=== PATIENT | female | born 1970 | race Caucasian/White ===

== ENCOUNTER 2020-01-20 18:18 | Emergency (ER) | payer BC, SELFPAY ==
[2020-01-20 18:38] VITALS: BP 142/88; PULSE 105; RESP 16; TEMP 37; O2SAT 98; BMI 38.2
--- NOTE | 2020-01-20 18:40 | XR_ITS ---
PROCEDURE: XR FOOT LT MIN 3V Patient Age:49Y CLINICAL INDICATION: FALL left foot pain Swelling pain dorsal aspect of the foot most pronounced towards 4th and 5th metatarsal COMPARISON: No exams were available for comparison FINDINGS: Oblique acute nondisplaced fracture passing obliquely through the proximal metaphysis of the 5th metatarsal.. This subtle fractures seen on the oblique view, but difficult to appreciate on the other views The 4th metatarsal is intact. Other metatarsals intact. Tarsals intact normal relationships joint spaces fairly well maintained with only. Skin minor sclerosis about the talar-navicular articulation. The joint spaces at toes are well maintained. No erosions. Toes unremarkable. IMPRESSION: Nondisplaced fracture left 5th metatarsal This is subtle fracture seen passing obliquely through the proximal metaphysis fifth metatarsal (seen on the oblique view since Dictated by: Beka Patel MD 01/20/2020 19:25 Electronically signed by Beka Patel MD in [place] 01/20/2020 19:25
--- NOTE | 2020-01-20 18:54 | HMH.EDUTC ---
[facility] [place] Disposition Clinical Impression: Fracture of fifth metatarsal bone of left foot Qualifiers: Encounter type: initial encounter Fracture type: closed Fracture alignment: nondisplaced Qualified Code(s): S92.355A - Nondisplaced fracture of fifth metatarsal bone, left foot, initial encounter for closed fracture Disposition: Home, Self-Care Condition on Discharge: Good Instructions: DI for Foot Fracture, Foot Fracture, How To Perform RICE (Rest, Ice, Compress, Elevate), How to Use Crutches Additional Instructions: *No weight bearing *RICE, Rest the extremity, Ice 15-20 minutes 3-4 times daily, Compress- wear the dhaval wrap as discussed as much as possible to help reduce swelling and pain, Elevate the extremity when at rest *Dhaval wrap is for support and help control swelling, use it except in the shower. Be sure that is not to tight but not to loose either *Elevate when resting *Ibuprofen 600-800mg every 6-8 hours as needed for pain an inflammation. If need something more can take Tylenol in between doses of Ibuprofen to help Immediately follow up with your family doctor for new or worsening of symptoms, or no noticeable improvement over the next 3-[address] Villeda office on Wednesday and make appointment Return if needed Straight to ER if any life threatening symptoms Referrals: Nestor Stevenson [Primary Care Provider] - As needed Isha Willams DPM [Staff Physician] - Akanksha Harris APRN [Nurse Practitioner] - Time of Disposition: 19:42 Medical Decision Making - Rj Inquiry Pt receiving controlled substance: No Rj was queried for this patient: No Vital Signs: 01/20/20 18:38 Temperature 98.6 F Temperature Source Oral Pulse Rate [Right Brachial] 105 H Respiratory Rate 16 Blood Pressure [Right Arm] 142/88 H Blood Pressure Mean [Right Arm] 106 Blood Pressure Source [Right Arm] Automatic Cuff Blood Pressure Position [Right Arm] Sitting 02 Sat by Pulse Oximetry 98 Oxygen Delivery Method Room Air - Radiology Data #1 Image(s): Foot/Toes Image Reviewed: Yes I have reviewed radiologist's interpretation IMPRESSION: Nondisplaced fracture left 5th metatarsal This is subtle fracture seen passing obliquely through the proximal metaphysis fifth metatarsal (seen on the oblique view since [facility] HPI - General Stated complaint: AO 0725 1200 fell injured L foot Time Seen by Provider: 01/20/20 18:54 Mode of Arrival: Ambulatory Source of Information: Patient Limitations: No Limitations Description of Symptoms (Recalled from Triage Doc. by RN): fall, left foot is hurting, top of foot bruised HEENT Symptoms (Recalled from RN notes): No Resp Symptoms (Recalled from RN notes): No Skin Symptoms (Recalled from RN notes): No MS Symptoms (Recalled from RN notes): Yes Functional Status (Recalled from RN notes): none - History of Present Illness Provider Complaint: Patient state that she was up in the attic and as she was coming down from the attic she slipped and landed on her left foot States that ever since she has been having pain and swellign in the side of her left foot and feels like her 4th and 5th toes are swollen States that she fell about noon today and this evening it looked more bruised so she came in to get it checked Denies any other injury - Related Data Home Medications Medication Instructions Recorded Confirmed cholecalciferol (vitamin D3) 50 2,000 unit PO DAILY cap 09/01/17 01/20/20 mcg (2,000 unit) capsule citalopram 20 mg tablet 20 mg PO DAILY tab 09/01/17 01/20/20 estradiol 1 mg tablet 1 mg PO DAILY tab 09/01/17 01/20/20 levothyroxine 88 mcg capsule 88 mcg PO DAILY cap 09/01/17 01/20/20 hxjwwldpgzkn-Vk-lvqf-minerals 18 1 tab PO DAILY tab 09/01/17 01/20/20 mg-0.4 mg tablet topiramate 50 mg tablet 50 mg PO QHS tab 09/01/17 01/20/20 vitamin B complex 1 tab PO DAILY tab 09/01/17 01/20/20 Pantoprazole Sodium [Protonix 40mg 40 mg PO QAM 01/20/20 01/20/20 tablet] Allergies A
[2020-01-20 19:55] VITALS: BP 142/88; PULSE 105; RESP 16; TEMP 37
== END 2020-01-20 20:01 | disposition home or self-care (01) ==
PROVIDERS: Emergency Provider Nurse Practitioner; PCP Family Medicine
DX: S92.355A Nondisplaced fracture of fifth metatarsal bone, left foot, initial encounter for closed fracture (principal); W10.8XXA Fall (on) (from) other stairs and steps, initial encounter; Y92.019 Unspecified place in single-family (private) house as the place of occurrence of the external cause; K21.9 Gastro-esophageal reflux disease without esophagitis; E03.9 Hypothyroidism, unspecified; F41.9 Anxiety disorder, unspecified; G43.709 Chronic migraine without aura, not intractable, without status migrainosus; Z88.0 Allergy status to penicillin
CPT/HCPCS: 73630; 99201

== ENCOUNTER → 2020-02-19 14:47 | Outpatient (CLI) | payer BC, SELFPAY ==
--- NOTE | 2020-02-19 14:52 | XR_ITS ---
PROCEDURE: XR FOOT WT BEARING LT 3V CLINICAL INDICATION: fracture follow up. Follow-up fracture COMPARISON: CR XR FOOT LT MIN 3V from 01/20/2020 FINDINGS: Nondisplaced oblique fracture involves the proximal aspect of the 5th metatarsal. This fracture is nondisplaced. The fracture line is somewhat less apparent compared to the previous exam consistent with healing. No other significant anomalies are evident. The joint spaces are well-preserved. No significant degenerative/arthritic changes. No erosive changes evident. Other findings:None. IMPRESSION: Healing nondisplaced oblique fracture proximal aspect of the 5th metatarsal Dictated by: Clark Sher MD 02/19/2020 15:09 Clark Sher MD in [place] 02/19/2020 15:09
== END ==
PROVIDERS: PCP Family Medicine; Visit Provider Podiatrist
DX: T14.8XXA Other injury of unspecified body region, initial encounter (principal)
CPT/HCPCS: 73630

== ENCOUNTER → 2020-07-17 06:44 | Outpatient (CLI) | payer BC, SELFPAY ==
--- NOTE | 2020-07-17 06:45 | CA_ITS ---
APPROVED REPORT Exam: Exercise Treadmill Technologist: Beth Feliz Ht: 5 ft 6 in Wt: 253 lbs BSA: 2.21 m2 HR: 59 bpm BP: 129/82 mmHg Indications: Chest pain Medical History Medications: Levothyroxine,,,,, Vitamin D3,,,,, Citalopram,,,,, TopIRAMATE,,,,, Vitamin B Complex,,,,, Multivitamin,,,,, Suralfate,,,,, Stress Test Details Test: Scout HR Resting HR: 69 bpm Max Heart Rate (APMHR): 170 bpm Max HR Achieved: 130 bpm Target HR (85% APMHR): 144 bpm % of APMHR: 76 Recovery HR: 67 bpm BP Resting BP: 129.0/82.0 mmHg Max BP: 178.0/84.0 mmHg Recovery BP: 130.0/73.0 mmHg ECG Resting ECG: Sinus bradycardia, otherwise normal Clinical Exercise duration: 06:00 min Highest Stage Achieved: Exercise capacity: 7.0 METs Stress ECG Conclusion Patient exercised to exhaustion which was 6:00 on Scout Protocol. Test stopped due to shortness of air, fatigue. Symptoms: Mild grabbing chest discomfort with shortness of air. Arrhythmias/Ectopy: None ST-T Changes: Normal ST response to exercise. Conclusion: Normal GXT to heart rate achieved (76% of PM). Myoview images reported separately. Test Summary RECOVERY 01:00 0.0 0.0 105 . 178/ 84 . chest pressure REST . . . . . . . Standing REST 03:06 0.0 0.0 69 . 129/ 82 . . Stage 1 01:00 10.0 1.7 91 . . . . Stage 1 02:00 10.0 1.7 101 . . . . Stage 1 03:00 10.0 1.7 108 . 158/ 75 . . Stage 2 01:00 12.0 2.5 119 . . . . Stage 2 . . . . . . . Myoview Injected Stage 2 02:00 12.0 2.5 127 . . . . Stage 2 03:00 12.0 2.5 130 . . . Stop exercise at 06:00 RECOVERY . . . . . . . chest pressure RECOVERY 01:00 0.0 0.0 105 . 178/ 84 . . RECOVERY 02:00 0.0 0.0 76 . 178/ 84 . . RECOVERY 03:00 0.0 0.0 73 . 140/ 75 . . RECOVERY 04:00 0.0 0.0 70 . 140/ 75 . . RECOVERY 05:00 0.0 0.0 67 . 140/ 75 . . RECOVERY 05:20 0.0 0.0 68 . 130/ 73 . . Electronically signed by : Daryl Pena, 07/18/2020 16:29:04
--- NOTE | 2020-07-17 06:45 | CA_ITS ---
APPROVED REPORT EXAM: Comprehensive 2D, Doppler, and color-flow Echocardiogram Head Animal Keeper: Kaylah Ballard RVT Ht: 5 ft 6 in Wt: 253lbs BSA: 2.21 BP: 122/84 mmHg Indications: CP,ORTA,GERD TDS-BODY HABITUS 2D Dimensions LVOT 1.61 cm (M/F) 1.5-2.5 M-Mode Dimensions RVDd 2.36 cm (0.9-2.6) LA Diam 3.54 cm (1.9-4.0) LVDd 5.78 cm (3.5-5.7) Ao Diam 2.82 cm (2.0-3.7) LVDs 3.53 cm (3.5-5.7) IVSd 0.65 cm (0.6-1.1) PWd 0.76 cm (0.6-1.1) EF (Teich) 68.60% FS 38.90% EDV (Teich) 165.20 mL ESV (Teich) 51.90 mL LV Diastology E Decel Time 193.00 (160-240 msec) E/A Ratio 1.1 MED E' 9.00 (< 7 cm/sec) E'/MED E' Ratio 8.78 (>14) LAT E' 13.60 (<10 cm/sec) E/LAT E' Ratio 5.81 (>14) Mitral Valve MV E Max Juan. 79.00 (40-130 cm/s) MV A Velocity 69.00 (40-130 cm/s) E/A Ratio 1.14 MV Decel. Time 193.00 (160-240 ms) MV PHT 57.00 ms Pulmonary Valve PV Peak Velocity 73.00 (50-150 cm/s) Tricuspid Valve TR P. Velocity 162.00 cm/s Left Ventricle Left atrium is normal size, left ventricle is normal size, there is no concentric left ventricular hypertrophy, visually estimated ejection fraction 55% with no regional wall motion abnormality, diastolic parameters are within normal range. Right Ventricle Right atrium and right ventricle are normal size and contractility. Aortic Valve Aortic valve is grossly normal, there is no aortic stenosis or aortic insufficiency. Mitral Valve Mitral valve is grossly normal, there is trace mitral regurgitation. Tricuspid Valve Tricuspid valve is grossly normal, there is trace tricuspid regurgitation, tricuspid regurgitation jet velocity is inadequate for calculation of the left right ventricular systolic pressure. Pulmonic Valve Pulmonic valve is poorly visualized. Great Vessels Aortic root is normal size. Pericardium No significant pericardial effusion noted. Conclusion 1. Normal left ventricular size, preserved left ventricular systolic function, visually estimated ejection fraction 55% with no regional wall motion abnormality, diastolic parameters are within normal range. 2. Trace mitral and tricuspid regurgitation. 3. No significant pericardial effusion noted. Electronically signed by : Daryl Pena, 07/18/2020 15:20:52
--- NOTE | 2020-07-17 06:45 | NM_ITS ---
APPROVED REPORT Exam: Nuclear Stress Test Indication: Chest pain, SOB, High cholesterol, Family history Patient Location: Outpatient Stress Tech: Beth Feliz VA Tech:Candi Noel, ARRT, RT (R)(N) Ht: 5 ft 7 in Wt: 250 lbs Bra Size: 44DD HR: 59 bpm BP: 129/82 mmHg BSA: 2.22 m2 BMI: 39.1 History: Chest pain, SOB, High cholesterol, Family history Procedure: Patient exercised on Scout protocol 6:00 minutes and sec, resting heart rate 59 bpm, resting blood pressure 129/82 mmHg, with exercise maximum heart rate achived was 130 bpm which is 76 % of the maximum predicted heart rate and blood pressure was 178/84 mmHg. Test was stopped due to SOA and fatigue. Patient has Adequate exercise capacity, achieved 7.0 METs of workload on treadmill, the blood pressure response to exercise was Adequate. Electrocardiogram Resting electrocardiogram showed sinus rhythm, with exercise there is less than 1.[address] segment depression noted from the baseline EKG. The EKG portion of the exercise Myoview is nondiagnostic as patient did not achieve the target heart rate. Cardiac Stress and Resting SPECT Images: Cardiac Stress and Resting SPECT images were obtained using technetium 99m Myoview 32.1 mCi stress and 9.62 mCi at rest. Gated SPECT for analysis of segmental wall motion and calculation of the ejection fraction also done, prone images were also obtained. Cardiac stress and resting SPECT images show uniform myocardial activity without segmental perfusion abnormality, computer derived ejection fraction 57% with no regional wall motion abnormality, right ventricle is normal size and contractility. Conclusion: 1. The EKG portion of the exercise Myoview is nondiagnostic as patient did not achieve the target heart rate, patient has adequate exercise capacity achieved 7 mets of workload on treadmill, the blood pressure response to exercise was adequate. There was no exercise-induced chest discomfort. 2. No scintigraphic evidence of reversible ischemia seen at this level of exercise, computer derived ejection fraction is 57% with no regional wall motion abnormality, right ventricle is normal size and contractility. Electronically signed by : Daryl Pena, 07/18/2020 16:32:31
--- NOTE | 2020-07-17 08:08 | HMH.ITSHM ---
Current Home Medications as stated by this patient Akanksha Milian or vendor representatives. []VITAMIN B TOPIRAMATE SUCRALFATE MULTIVITAMIN LEVOTHYROXINE CITALOPRAM VITAMIN D3
[2020-07-17 10:23] LABS: Basophils # 0.1 K/mm3 (0-0.2); Basophils % 0.7 % (0.1-2.0); Eosinophils # 0.3 K/mm3 (0.0-0.4); Eosinophils % 4.1 % (0.1-12.0); Hematocrit 43.9 % (37.0-47.0); Hemoglobin 14.5 g/dL (12.2-16.2); Lymphocytes % 41.9 % (10-50); Mean Corpuscular Hemoglobin 29.3 pg (27.0-31.2); Mean Corpuscular Volume 88.8 fl (81-99); Monocytes # 0.5 K/mm3 (0.1-1.0); Monocytes % 6.9 % (1.7-9.3); Neutrophils # 3.3 K/mm3 (1.8-7.8); Neutrophils % 46.4 % (37.0-80.0); Platelet Count 236 K/mm3 (142-424); Red Blood Count 4.95 M/mm3 (4.20-5.40); Red Cell Distribution Width 14.5 % (11.5-17.5); White Blood Count 7.1 K/mm3 (4.8-10.8)
[2020-07-17 13:21] LABS: Chloride 103 mmol/L (98-107); Sodium 138 mmol/L (136-145)
[2020-07-17 13:22] LABS: Potassium 4.1 mmoL/L (3.5-5.1)
[2020-07-17 13:24] LABS: Alanine Aminotransferase 41 U/L (12-78); Albumin Level 4.1 g/dl (3.5-5.0); Alkaline Phosphatase 70 U/L (38-126); Anion Gap 10.1 mEq/L (5-15); Aspartate Amino Transferase 47 U/L (14-36); Bilirubin,Direct 0.1 mg/dl (0.0-0.4); Bilirubin,Indirect 0.3 mg/dL (0.0-0.9); Bilirubin,Total 0.4 mg/dl (0.2-1.3); Bilirubin,Unconjugated 0.3 mg/dL (0.0-1.1); Blood Urea Nitrogen 15 mg/dl (7-17); Carbon Dioxide 29 mmol/L (22.0-30.0); Cholesterol 267 mg/dl (140-200); Estimated Glomerular Filt Rate 66 ml/min (>60); GFR (African American) 80 ML/MIN (>60); Total Protein,Serum 6.7 g/dl (6.3-8.2); Triglycerides 205 mg/dl (30-150); VLDL Cholesterol 41 mg/dL (0-40)
[2020-07-17 13:25] LABS: Calcium 9.5 mg/dl (8.4-10.2); Chol/HDL Ratio 5.3 (1-3.5); Glucose 84 mg/dl (74-100); HDL Cholesterol 50 mg/dl (40-60)
[2020-07-17 13:43] LABS: Free T4 (Free Thyroxine) 1.34 ng/dl (0.78-2.19)
[2020-07-17 13:56] LABS: Thyroid Stimulating Hormone 1.81 uIU/mL (0.465-4.68)
== END ==
PROVIDERS: PCP Family Medicine; Visit Provider Urology
DX: R07.9 Chest pain, unspecified (principal); R06.00 Dyspnea, unspecified
CPT/HCPCS: 36415; 78452; 80048; 80061; 80076; 84439; 84443; 85025; 93017; 93306; A9502

== ENCOUNTER → 2020-07-17 09:19 | Outpatient (CLI) | payer BC, SELFPAY | PROVIDERS: Visit Provider Urology | DX: R07.9 Chest pain, unspecified (principal) | CPT/HCPCS: 36415; 80048; 80061; 80076; 84439; 84443; 85025 ==

== ENCOUNTER 2020-11-18 14:40 | Emergency (ER) | payer OTHER, SELFPAY ==
[2020-11-18 14:50] VITALS: BP 132/88; PULSE 94; RESP 19; TEMP 37; O2SAT 100; BMI 41.6
--- NOTE | 2020-11-18 15:20 | HMH.EDUTC ---
[facility] [place] Disposition Clinical Impression: Conjunctivitis Qualifiers: Conjunctivitis type: unspecified Laterality: right Qualified Code(s): H10.9 - Unspecified conjunctivitis Disposition: Home, Self-Care Condition on Discharge: Good Instructions: DI for Conjunctivitis, Conjunctivitis, Polymyxin B and Trimethoprim Ophthalmic Additional Instructions: Use drops as prescribed Wash hands well before and after application of eye drops Return if needed Follow up with Dr Higuera at [facility] or an Eye Doctor of your choice if no improvement or any worsening of symptoms Straight to ER if any life threatening symptoms Follow up with Family Doctor if needed Prescriptions: Polymyxin B Sulf/Trimethoprim [Polytrim Ophth Soln 10mL Bottle] 2 drops EYE-RIGHT Q6H 7 Days #1 bottle Transmission Status: [facility] Referrals: Nestor Stevenson [Primary Care Provider] - As needed [facility] [Other] Time of Disposition: 15:30 Medical Decision Making - Rj Inquiry Pt receiving controlled substance: No Rj was queried for this patient: No Vital Signs: 11/18/20 14:50 Temperature 98.6 F Temperature Source Oral Pulse Rate [Right Brachial] 94 H Respiratory Rate 19 Blood Pressure [Right Arm] 132/88 Blood Pressure Mean [Right Arm] 102 Blood Pressure Source [Right Arm] Automatic Cuff Blood Pressure Position [Right Arm] Sitting 02 Sat by Pulse Oximetry 100 Oxygen Delivery Method Room Air [facility] [place] HPI - General Stated complaint: Rt eye red Time Seen by Provider: 11/18/20 15:20 Mode of Arrival: Ambulatory Source of Information: Patient Limitations: No Limitations Description of Symptoms (Recalled from Triage Doc. by RN): PATIENT C/O PAIN AND REDNESS TO RIGHT EYE SINCE YESTERDAY HEENT Symptoms (Recalled from RN notes): Yes Resp Symptoms (Recalled from RN notes): No Skin Symptoms (Recalled from RN notes): No MS Symptoms (Recalled from RN notes): No Functional Status (Recalled from RN notes): WNL - History of Present Illness Provider Complaint: Patient states that she noticed yesterday that her right eye felt a little sore, draining and looked a little red and was itchy and irritated States that she has been putting warm compresses on it and it has helped some but today she noticed it looked more red and irritated and was a little swollen Patient denies injury and denies FB States that eye feels irritated - Related Data Home Medications Medication Instructions Recorded Confirmed levothyroxine 88 mcg capsule 88 mcg PO DAILY cap 09/01/17 11/18/20 citalopram 10 mg tablet 10 mg PO DAILY 07/08/20 11/18/20 sucralfate 1 gram tablet 1 g PO BID 07/08/20 11/18/20 topiramate 50 mg tablet 75 mg PO QHS tab 07/08/20 11/18/20 Rabeprazole Sodium 20 mg PO DAILY 11/18/20 11/18/20 Previous Rx's Medication Instructions Recorded Polymyxin B Sulf/Trimethoprim 2 drops EYE-RIGHT Q6H 7 Days #1 11/18/20 [Polytrim Ophth Soln 10mL Bottle] bottle Allergies Allergy/AdvReac Type Severity Reaction Status Date / Time Penicillins Allergy Verified 07/29/20 11:26 - Worker's Comp Is this a Worker's Comp case?: No H History - Hepatitis A Screen Drug use history?: No High risk sexual behaviors?: No History of sexually transmitted infection?: No Currently employed?: No Childcare worker?: No Do you have indoor plumbing?: Yes Do you have electricity?: Yes Attestation statement:: This patient has been screened for Hepatitis A risk factors. I have reviewed the patient's past medical history: Yes Medical History: Reports:: Anxiety, Gastroesophageal Reflux Disease(GERD), Migraine Denies:: Cancer, Diabetes Mellitus Type 1, Diabetes Mellitus Type 2, MRSA Other Medical History: Reports: Hypothyroidism Other Surgeries: Yes: Cholecystectomy, Hysterectomy-Total Amputation: No Fractures: Yes (right foot) Comment: Gallbladder removed. Right Ankle Surgery 2011 - Social History Smoking Status: Never smoker A
[2020-11-18 15:37] VITALS: BP 132/88; PULSE 94; RESP 19; TEMP 37; O2SAT 100
== END 2020-11-18 15:40 | disposition home or self-care (01) ==
PROVIDERS: Emergency Provider Nurse Practitioner; PCP Family Medicine
DX: H10.31 Unspecified acute conjunctivitis, right eye (principal); K21.9 Gastro-esophageal reflux disease without esophagitis; F41.9 Anxiety disorder, unspecified; G43.709 Chronic migraine without aura, not intractable, without status migrainosus; Z79.899 Other long term (current) drug therapy
CPT/HCPCS: 99202; G0463

== ENCOUNTER → 2020-12-23 18:10 | Outpatient (CLI) | payer OTHER, SELFPAY ==
[2020-12-23 18:36] LABS: Basophils # 0.1 K/mm3 (0-0.2); Basophils % 0.8 % (0.1-2.0); Eosinophils # 0.4 K/mm3 (0.0-0.4); Eosinophils % 5.1 % (0.1-12.0); Hematocrit 41.8 % (37.0-47.0); Hemoglobin 14.1 g/dL (12.2-16.2); Lymphocytes # 2.7 K/mm3 (0.7-4.5); Lymphocytes % 37.3 % (10-50); Mean Corpuscular HGB Conc 33.7 g/dL (31.8-35.4); Mean Corpuscular Hemoglobin 29.1 pg (27.0-31.2); Mean Corpuscular Volume 86.5 fl (81-99); Mean Platelet Volume 9.4 fl (7.4-10.4); Monocytes # 0.6 K/mm3 (0.1-1.0); Neutrophils # 3.5 K/mm3 (1.8-7.8); Neutrophils % 48.7 % (37.0-80.0); Platelet Count 260 K/mm3 (142-424); Red Blood Count 4.84 M/mm3 (4.20-5.40); Red Cell Distribution Width 13.8 % (11.5-17.5); White Blood Count 7.1 K/mm3 (4.8-10.8)
[2020-12-23 19:10] LABS: Alanine Aminotransferase 18 U/L (12-78); Albumin Level 4.2 g/dl (3.5-5.0); Albumin/Globulin Ratio 1.8 (1.1-1.8); Alkaline Phosphatase 73 U/L (38-126); Anion Gap 13.1 mEq/L (5-15); Aspartate Amino Transferase 31 U/L (14-36); Bilirubin,Total 0.7 mg/dl (0.2-1.3); Blood Urea Nitrogen 16 mg/dl (7-17); Carbon Dioxide 26 mmol/L (22.0-30.0); Chloride 104 mmol/L (98-107); Chol/HDL Ratio 4.2 (1-3.5); Cholesterol 187 mg/dl (140-200); Estimated Glomerular Filt Rate 66 ml/min (>60); GFR (African American) 80 ML/MIN (>60); Globulin 2.4 g/dL (1.3-3.2); Glucose 73 mg/dl (74-100); HDL Cholesterol 45 mg/dl (40-60); Potassium 4.1 mmoL/L (3.5-5.1); Sodium 139 mmol/L (136-145); Total Protein,Serum 6.6 g/dl (6.3-8.2); Triglycerides 121 mg/dl (30-150); VLDL Cholesterol 24 mg/dL (0-40)
[2020-12-23 19:20] LABS: Direct LDL Cholesterol 112.01 mg/dL (100-129)
[2020-12-23 19:38] LABS: Thyroid Stimulating Hormone 0.63 uIU/mL (0.465-4.68)
== END ==
LOC: LAB.DROPOF 18:10
PROVIDERS: Visit Provider Internal Medicine Adolescent Medicine
DX: E03.9 Hypothyroidism, unspecified (principal); E78.5 Hyperlipidemia, unspecified
CPT/HCPCS: 80053; 80061; 84443; 85025

== ENCOUNTER 2021-01-29 17:18 | Emergency (ER) | payer OTHER, BC, SELFPAY ==
[2021-01-29 17:20] VITALS: BP 131/79; PULSE 75; RESP 18; TEMP 37.2; O2SAT 99; BMI 41.4
[2021-01-29 17:30] VITALS: BP 121/71; PULSE 74; RESP 18; O2SAT 99
[2021-01-29 18:00] VITALS: BP 109/69; PULSE 74; RESP 18; O2SAT 98
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
[2021-01-29 19:33] VITALS: BP 125/79; PULSE 75; RESP 18; TEMP 36.8; O2SAT 98
== END 2021-01-29 19:40 | disposition home or self-care (01) ==
PROVIDERS: Emergency Provider Family Medicine; PCP Internal Medicine Adolescent Medicine
DX: S16.1XXA Strain of muscle, fascia and tendon at neck level, initial encounter (principal); R51.9 Headache, unspecified; V40.5XXA Car driver injured in collision with pedestrian or animal in traffic accident, initial encounter; Y92.413 State road as the place of occurrence of the external cause
CPT/HCPCS: 96372; 99281

== ENCOUNTER → 2021-02-21 17:32 | Outpatient (CLI) | payer OTHER, SELFPAY | PROVIDERS: Visit Provider Internal Medicine Gastroenterology | DX: Z01.812 Encounter for preprocedural laboratory examination (principal); Z11.52 Encounter for screening for COVID-19; Z13.810 Encounter for screening for upper gastrointestinal disorder | CPT/HCPCS: U0003 ==

== ENCOUNTER 2021-02-24 09:19 | Day surgery (SDC) | payer OTHER, SELFPAY ==
[2021-02-21 12:26] VITALS: BMI 41.1
[2021-02-24 09:37] VITALS: BP 118/79; PULSE 67; RESP 18; TEMP 36.6; O2SAT 97
--- NOTE | 2021-02-24 10:22 | HMH.ANESCL ---
[facility] Anesthesia Checklist - Patient Identification Patient Identification: Arm Band - Structural Data Admitted From: Home Planned Operative Procedure/s: colonoscopy Consent for Planned Operative Procedure(s) Verified: Yes Verified Documents: Surgical Consent, History and Physical - NPO Status Verified Time NPO: 00:00 - Additional verifications Anesthesia Reactions: No - Airway Assessment C-Spine Mobility Assessed: Yes (mp2) TMJ Mobility Assessed: Yes Dentition: Good Dentition - Neurological Assessment Level of Consciousness: Awake, Alert - Anesthesia Plan Anesthesia Risk discussed: Yes Anesthesia Plan: Verified ASA Class: III Anesthesia Type: MAC [facility] History I have reviewed the patient's past medical history: Yes Medical History: Reports:: Anxiety, Gastroesophageal Reflux Disease(GERD), Migraine Denies:: Cancer, Diabetes Mellitus Type 1, Diabetes Mellitus Type 2, MRSA, Seizures *Have you ever received a pneumonia vaccine?: No *Have you received a flu vaccine this season?: Yes Other Medical History: Reports: Hypothyroidism Anesthesia experience/problems:: nac Other Surgeries: Yes: Cholecystectomy, Hysterectomy-Total, Tubal Ligation, Other Amputation: No Fractures: Yes (right foot) - *Social History Last grade of school completed: Advanced degree Smoking Status: Never smoker Alcohol Intake: never Substance Use Type: denies use *Occupational Status:: employed Housing: house Household Members: spouse *Travel in the last 8 weeks: None - Psychiatric History Pschychiatric History:: Reports:: Anxiety Family Hx:: Cancer, Coronary Artery Disease, Diabetes
--- NOTE | 2021-02-24 10:45 | HMH.PROC ---
[facility] Procedure Note Procedure Note:: Upper Endoscopy Procedure Report: Esophagogastroduodenoscopy with cold biopsies and TTS balloon dilation Endoscopost: Constantine Barker II, MD Referring Physician: Rodri Hassan MD Date of Procedure: February 24, 2021 Equipment: Olympus GIF 190 standard upper endoscope Sedation: MAC sedation Indications: Mrs. Milian is a 50-year-old female with chronic intractable heartburn and reflux. She does get reflux while lying down. She also has some esophageal (noncardiac) chest pain. She has seen cardiology (Rod Malone M.D.) and had prior negative cardiac evaluation (normal cardiac stress testing). The patient does report some bloating but no belching. She does have occasional dysphagia. She has nausea and some early satiety. She reports irritable bowel syndrome with constipation that alternates with diarrhea. She has been followed by gastroenterology (Dr. Rodri Sim) in [place] and has had 2 prior upper endoscopies. She had been told that she has a hiatal hernia. She did have a colonoscopy last year and had a few colon polyps. The patient is on Rabeprazole by mouth twice daily. She has been on other PPI therapy in the past. She also takes Carafate and metoclopramide. She also takes famotidine once daily. EGD is performed for further evaluation. Procedure: Prior to the procedure, a history and physical exam was performed, and patient's medications and allergies were reviewed. The risks, benefits and alternatives of the sedation and procedure were discussed with the patient. All questions were answered and informed consent was obtained. The patient was brought to the procedure room. Patient identification and proposed procedure were verified by the physician and the nurse. The patient was placed in a left lateral decubitus position and the scope was passed under direct vision. Throughout the procedure, the patient's blood pressure, pulse, and oxygen saturations were monitored continuously. The upper GI endoscopy was accomplished without difficulty. The patient tolerated the procedure well. Findings: The scope was passed directly into the upper esophagus and advanced to the third portion of the duodenum. The post bulbar duodenum and duodenal bulb were normal with normal mucosa and conniventes. The scope was withdrawn through a normal duodenal bulb and pylorus into the stomach. There was bile reflux with moderate linear reactive gastropathy of the antrum. Cold biopsies were obtained from the antrum. Upon retroflexion there was moderate chronic atrophic gastritis of the body and fundus of the stomach. 4 biopsies were taken from the fundus of the stomach to rule out atrophic gastritis. Upon retroflexion there was also a medium size 3 cm hiatal hernia. The scope was then withdrawn into the esophagus. There was no evidence of reflux esophagitis, Yang's or Schatzki's ring. Biopsies were taken at the GE junction. There were tertiary contractions and evidence of moderate esophageal dysmotility. The entire esophagus was dilated to 60 Frisian/20 mm with a TTS hydrostatic balloon. There was some resistance at the cricopharyngeus. The remainder of the esophageal mucosa was normal. Impression: 1. Nonerosive GERD with moderate esophageal dysmotility and medium size 3 cm hiatal hernia 2. Cricopharyngeal spasm status post dilation to 20 mm 3. Moderate chronic atrophic gastritis 4. Bile reflux with mild to moderate reactive gastropathy of antrum Plan: Acid reduction therapy/PPI therapy will result in further loss of parietal cells and further gastric atrophy. This will contribute to B12 deficiency/iron deficiency and achlorhydria. I would stop PPI therapy presently. I would recommend promotility therapy. I will inquire further whether she is taking metoclopramide which she was asked about Courtney but stated that she was not taking. I would also encourage fiber bowel regimen and dietary measures.
[2021-02-24 10:48] VITALS: BP 121/72; PULSE 74; RESP 18; TEMP 36.1; O2SAT 92
[2021-02-24 10:58] VITALS: BP 120/80; PULSE 68; RESP 18; O2SAT 97
[2021-02-24 11:09] VITALS: BP 128/67; PULSE 64; RESP 18; O2SAT 98
[2021-02-24 11:38] VITALS: BP 118/75; PULSE 59; RESP 18; O2SAT 100
--- NOTE | 2021-02-24 11:46 | SUR.PHASEII ---
LABS ORDERED. TO BE DRAWN BEFORE DISCHARGE.
[2021-02-24 13:26] VITALS: O2SAT 97
[2021-02-26 14:32] LABS: Antiparietal Cell Antibody 19.1 Units (0.0-20.0)
== END 2021-02-24 11:50 | disposition home or self-care (01) ==
LOC: OUTP 09:21
PROVIDERS: PCP Internal Medicine Adolescent Medicine; Visit Provider Internal Medicine Gastroenterology
PROC: 0DJ08ZZ Inspection of Upper Intestinal Tract, Via Natural or Artificial Opening Endoscopic (ICD-10-PCS; CPT 43235; principal; 2021-02-24 11:00)
DX: K21.9 Gastro-esophageal reflux disease without esophagitis (principal); K22.4 Dyskinesia of esophagus; K44.9 Diaphragmatic hernia without obstruction or gangrene; J39.2 Other diseases of pharynx; K29.40 Chronic atrophic gastritis without bleeding; K31.9 Disease of stomach and duodenum, unspecified; F41.9 Anxiety disorder, unspecified; G43.909 Migraine, unspecified, not intractable, without status migrainosus; Z90.49 Acquired absence of other specified parts of digestive tract; Z80.9 Family history of malignant neoplasm, unspecified; Z82.49 Family history of ischemic heart disease and other diseases of the circulatory system; Z83.3 Family history of diabetes mellitus
CPT/HCPCS: 43239; 43249; 36415; 83516; C1726

== ENCOUNTER 2021-03-13 20:12 | Emergency (ER) | payer OTHER, SELFPAY ==
[2021-03-13 20:13] VITALS: BP 140/86; PULSE 81; RESP 20; TEMP 36.7; O2SAT 99; BMI 40.3
--- NOTE | 2021-03-13 20:18 | HMH.EDGENADL ---
ED Disposition Clinical Impression: Shortness of breath Disposition: Home, Self-Care Condition on Discharge: Good Instructions: Dizziness, Nonvertigo Additional Instructions: Return to the emergency department for any new or concerning symptoms. Follow-up with your primary care physician in 2 to 3 days. Referrals: Provider,Jorge, [Primary Care Provider] - - Critical Care Critical Care Time: No Attestation: On 03/13/21, the high probability of a clinically significant, sudden or life threatening deterioration of the following system(s) required my full and direct attention, intervention and personal management. The time I documented below is in addition to time spent performing reported procedures but includes the following listed in this critical care notation. Medical Decision Making - Medical Records Medical records reviewed: Yes: I reviewed the patient's medical records. - Rj Inquiry Pt receiving controlled substance: No Vital Signs: 03/13/21 20:13 03/13/21 21:00 03/13/21 21:30 Temperature 98.1 F Temperature Source Oral Pulse Rate 67 70 Pulse Rate [Right] 81 Respiratory Rate 20 15 20 Blood Pressure 131/68 148/77 H Blood Pressure [Right Arm] 140/86 Blood Pressure Mean [Right Arm] 104 02 Sat by Pulse Oximetry 99 98 98 Oxygen Delivery Method Room Air 03/13/21 22:00 Temperature Temperature Source Pulse Rate 71 Pulse Rate [Right] Respiratory Rate Blood Pressure 118/64 Blood Pressure [Right Arm] Blood Pressure Mean [Right Arm] 02 Sat by Pulse Oximetry 99 Oxygen Delivery Method - Lab Data Lab results reviewed: Yes: I reviewed the patient's lab results. Lab Results 03/13/21 20:15: WBC 8.9, RBC 5.00, Hgb 15.0, Hct 45.8, MCV 91.6, MCH 29.9, MCHC 32.7, RDW 13.1, Plt Count 255, MPV 8.7, Neut % (Auto) 58.4, Lymph % (Auto) 31.8, Webb % (Auto) 6.7, Eos % (Auto) 2.3, Baso % (Auto) 0.8, Neut # (Auto) 5.2, Lymph # (Auto) 2.8, Webb # (Auto) 0.6, Eos # (Auto) 0.2, Baso # (Auto) 0.1 03/13/21 20:15: Sodium 141, Potassium 3.9, Chloride 106, Carbon Dioxide 25, Anion Gap 13.9, BUN 12, Creatinine 1.30 H, Estimated Creat Clear 92, Estimated GFR 43 L, Est GFR ( Amer) 52 L, Glucose 116 H, Calcium 9.5, Total Bilirubin 0.4, AST 30, ALT 19, Alkaline Phosphatase 87, Troponin I < 0.01, Total Protein 7.2, Albumin 4.5, Globulin 2.7, Albumin/Globulin Ratio 1.7 03/13/21 23:25: Troponin I < 0.01 Result diagrams: 03/13/21 20:15 03/13/21 20:15 Orders (Tests/Meds): ED MEDICATIONS Generic Name Dose Route Start Last Admin Trade Name Freq PRN Reason Stop Dose Admin Sodium Chloride 1,000 mls @ 999 mls/hr 03/13/21 20:30 03/13/21 20:26 Sod Chlor 0.9% 1000ml Bag IV 03/13/21 21:30 999 mls/hr .Q1H1M TAY Administration Discontinued Medications Generic Name Dose Route Start Last Admin Trade Name Freq PRN Reason Stop Dose Admin Aspirin 324 mg 03/13/21 20:23 03/13/21 20:25 Aspirin 81mg Chewable Tablet PO 03/13/21 20:24 324 mg ONCE ONE Administration Ketorolac Tromethamine 30 mg 03/13/21 20:23 03/13/21 20:25 Ketorolac 30mg/Ml Vial IV 03/13/21 20:24 30 mg ONCE ONE Administration Meclizine HCl 25 mg 03/13/21 22:04 03/13/21 22:04 Meclizine 25mg Tablet PO 03/13/21 22:05 25 mg ONCE ONE Administration Ondansetron HCl 4 mg 03/13/21 20:23 03/13/21 20:26 Ondansetron 4mg/2ml Vial IV 03/13/21 20:24 4 mg ONCE ONE Administration ORDERS Category Date Time Status Troponin I Q3H Lab 03/14/21 02:30 Ordered Medical Decision Narrative: Patient is a 50-year-old female presenting to the emergency department with dyspnea and chest pain. Differential diagnosis includes ACS, viral, pneumonia, anxiety, have lower suspicion for a pulmonary embolism given the patient history, lack of tachycardia. Given this plan to order CBC, CMP, troponin, chest x-ray, EKG, patient with analgesia given her muscular aches, Zofran and aspirin. Patient has mild
--- NOTE | 2021-03-13 20:22 | XR_ITS ---
PROCEDURE INFORMATION: Exam: XR Chest Exam date and time: 03/13/2021 8:22 PM Age: 50 years old Clinical indication: Pain; Shortness of breath; Patient HX: SOA, chest pressure, light headed TECHNIQUE: Imaging protocol: XR of the chest. Views: 2 views. COMPARISON: No relevant prior studies available. FINDINGS: Lungs: Unremarkable. No consolidation. Pleural spaces: Unremarkable. No pleural effusion. No pneumothorax. Heart/Mediastinum: Unremarkable. No cardiomegaly. Bones/joints: Unremarkable. IMPRESSION: No acute findings.
[2021-03-13 20:38] LABS: Basophils # 0.1 K/mm3 (0-0.2); Basophils % 0.8 % (0.1-2.0); Chloride 106 mmol/L (98-107); Eosinophils # 0.2 K/mm3 (0.0-0.4); Eosinophils % 2.3 % (0.1-12.0); Hematocrit 45.8 % (37.0-47.0); Lymphocytes # 2.8 K/mm3 (0.7-4.5); Lymphocytes % 31.8 % (10-50); Mean Corpuscular HGB Conc 32.7 g/dL (31.8-35.4); Mean Corpuscular Hemoglobin 29.9 pg (27.0-31.2); Mean Corpuscular Volume 91.6 fl (81-99); Mean Platelet Volume 8.7 fl (7.4-10.4); Monocytes # 0.6 K/mm3 (0.1-1.0); Monocytes % 6.7 % (1.7-9.3); Neutrophils # 5.2 K/mm3 (1.8-7.8); Neutrophils % 58.4 % (37.0-80.0); Platelet Count 255 K/mm3 (142-424); Potassium 3.9 mmoL/L (3.5-5.1); Red Cell Distribution Width 13.1 % (11.5-17.5); Sodium 141 mmol/L (136-145); White Blood Count 8.9 K/mm3 (4.8-10.8)
[2021-03-13 20:41] LABS: Alanine Aminotransferase 19 U/L (12-78); Albumin Level 4.5 g/dl (3.5-5.0); Albumin/Globulin Ratio 1.7 (1.1-1.8); Alkaline Phosphatase 87 U/L (38-126); Anion Gap 13.9 mEq/L (5-15); Aspartate Amino Transferase 30 U/L (14-36); Bilirubin,Total 0.4 mg/dl (0.2-1.3); Blood Urea Nitrogen 12 mg/dl (7-17); Carbon Dioxide 25 mmol/L (22.0-30.0); Creatinine Clearance Estimated 92 mL/min (50-200); Estimated Glomerular Filt Rate 43 ml/min (>60); GFR (African American) 52 ML/MIN (>60); Globulin 2.7 g/dL (1.3-3.2); Total Protein,Serum 7.2 g/dl (6.3-8.2)
[2021-03-13 20:42] LABS: Calcium 9.5 mg/dl (8.4-10.2); Glucose 116 mg/dl (74-100)
[2021-03-13 20:54] LABS: Troponin I < 0.01 ng/ml (0.00-0.034)
[2021-03-13 21:00] VITALS: BP 131/68; PULSE 67; RESP 15; O2SAT 98
[2021-03-13 21:30] VITALS: BP 148/77; PULSE 70; RESP 20; O2SAT 98
[2021-03-13 22:00] VITALS: BP 118/64; PULSE 71; O2SAT 99
[2021-03-13 23:00] VITALS: BP 117/65; PULSE 83; O2SAT 98
[2021-03-14] VITALS: BP 134/91; PULSE 81; RESP 16; O2SAT 99
[2021-03-14 00:01] LABS: Troponin I < 0.01 ng/ml (0.00-0.034)
[2021-03-14 00:32] VITALS: BP 143/86; PULSE 79; RESP 16; TEMP 36.6; O2SAT 96
== END 2021-03-14 00:32 | disposition home or self-care (01) ==
PROVIDERS: Emergency Provider Emergency Medicine
DX: R06.02 Shortness of breath (principal); R42 Dizziness and giddiness; R07.9 Chest pain, unspecified; Z79.899 Other long term (current) drug therapy; Z88.0 Allergy status to penicillin; F41.9 Anxiety disorder, unspecified; K21.9 Gastro-esophageal reflux disease without esophagitis; E78.5 Hyperlipidemia, unspecified; G43.909 Migraine, unspecified, not intractable, without status migrainosus
CPT/HCPCS: 71046; 80053; 84484; 85025; 96365; 96375; 99283; J2405

== ENCOUNTER → 2021-04-21 16:18 | Outpatient (CLI) | payer OTHER, SELFPAY | PROVIDERS: PCP Internal Medicine Adolescent Medicine; Visit Provider Internal Medicine Adolescent Medicine | DX: G47.33 Obstructive sleep apnea (adult) (pediatric) (principal); R40.0 Somnolence; R53.83 Other fatigue; E66.9 Obesity, unspecified; Z68.41 Body mass index [BMI] 40.0-44.9, adult | CPT/HCPCS: 95806 ==

== ENCOUNTER 2021-06-26 07:52 | Outpatient (CLI) | payer OTHER, SELFPAY ==
[2021-06-26] VITALS (10 sets, daily range): BP systolic 108–125; BP diastolic 67–79; PULSE 59–68; RESP 18; TEMP 36.8; O2SAT 9–99
== END 2021-06-26 12:39 | disposition home or self-care (01) ==
LOC: COVID.OUT 07:53
PROVIDERS: PCP Nurse Practitioner Family; Visit Provider Nurse Practitioner Family
DX: U07.1 COVID-19 (principal); Z23 Encounter for immunization
CPT/HCPCS: 96365

== ENCOUNTER → 2021-07-24 03:22 | Outpatient (CLI) | payer OTHER, SELFPAY | PROVIDERS: PCP Internal Medicine Adolescent Medicine; Visit Provider Emergency Medicine | DX: L29.9 Pruritus, unspecified (principal) ==

== ENCOUNTER 2021-11-28 17:40 | Emergency (ER) | payer OTHER, SELFPAY ==
[2021-11-28 17:40] VITALS: BP 130/86; PULSE 73; RESP 18; O2SAT 98; BMI 39.1
--- NOTE | 2021-11-28 17:42 | ECG_ITS ---
APPROVED REPORT Exam: Resting ECG HR:69 bpm ECG Measurements Heart Rate 69 AXES [place] 207 P 30 QRSd 99 QRS 8 QT 384 T 14 QTc 403 Conclusion SINUS RHYTHM Late R wave progression BORDERLINE ECG UNCONFIRMED REPORT Electronically signed by : Antolin Kent MD 11/29/2021 17:24:32
[2021-11-28 17:47] VITALS: BP 126/90; PULSE 67; RESP 18; O2SAT 98
--- NOTE | 2021-11-28 17:49 | HMH.EDGENADL ---
ED Disposition Clinical Impression: Atypical chest pain, Viral gastroenteritis Disposition: Home, Self-Care Condition on Discharge: Good Instructions: DI for Viral Gastroenteritis -- Adult, DI for Atypical Chest Pain Additional Instructions: Zofran as needed for nausea and vomiting. [id number] Imodium as needed for diarrhea. Drink plenty of fluids. Additional instructions for VOMITING/DIARRHEA: See your physician as soon as possible for further evaluation. Drink plenty of fluids. Return immediately if severe abdominal pain, uncontrollable vomiting, shortness of breath, fever, bloody diarrhea, vomiting of blood or abdominal distention. Additional instructions for CHEST PAIN: See your physician as soon as possible for further evaluation. Return immediately if worsening chest pain, vomiting, shortness of breath, fever, coughing of blood. Prescriptions: Ondansetron [Zofran 4mg ODT] 4 mg PO TIDP PRN #10 tab PRN Reason: Nausea And Vomiting Transmission Status: Pending to [facility] [id number] Referrals: Provider,Referral, [Primary Care Provider] - - Critical Care Critical Care Time: No Attestation: On , the high probability of a clinically significant, sudden or life threatening deterioration of the following system(s) required my full and direct attention, intervention and personal management. The time I documented below is in addition to time spent performing reported procedures but includes the following listed in this critical care notation. Medical Decision Making - Rj Inquiry Pt receiving controlled substance: No Vital Signs: 11/28/21 17:40 11/28/21 17:47 Pulse Rate 67 Pulse Rate [Right Brachial] 73 Respiratory Rate 18 18 Blood Pressure 126/90 Blood Pressure [Right Arm] 130/86 Blood Pressure Mean [Right Arm] 100 Blood Pressure Source Automatic Cuff Blood Pressure Source [Right Arm] Automatic Cuff Blood Pressure Position Sitting Blood Pressure Position [Right Arm] Sitting 02 Sat by Pulse Oximetry 98 98 Oxygen Delivery Method Room Air Room Air - Lab Data Lab Results 11/28/21 17:45: WBC 7.9, RBC 5.36, Hgb 15.7, Hct 47.5 H, MCV 88.6, MCH 29.2, MCHC 33.0, RDW 13.9, Plt Count 279, MPV 9.0, Neut % (Auto) 62.5, Lymph % (Auto) 25.2, Sevier % (Auto) 5.1, Eos % (Auto) 4.2, Baso % (Auto) 3.1 H, Neut # (Auto) 4.9, Lymph # (Auto) 2.0, Sevier # (Auto) 0.4, Eos # (Auto) 0.3, Baso # (Auto) 0.2 11/28/21 17:45: Sodium 139, Potassium 3.8, Chloride 106, Carbon Dioxide 26, Anion Gap 10.8, BUN 13, Creatinine 1.00, Estimated Creat Clear 118, Estimated GFR 58 L, Est GFR ( Amer) 70, Glucose 114 H, Calcium 9.5, Troponin I < 0.01 Result diagrams: 11/28/21 17:45 11/28/21 17:45 Orders (Tests/Meds): ED MEDICATIONS Generic Name Dose Route Start Last Admin Trade Name Freq PRN Reason Stop Dose Admin Sodium Chloride 10 ml 11/28/21 18:56 Sodium Chloride 0.9% 10ml Flush Syringe IV 12/28/21 18:55 NEEDED PRN Maintain IV Site Discontinued Medications Generic Name Dose Route Start Last Admin Trade Name Freq PRN Reason Stop Dose Admin Ondansetron HCl 4 mg 11/28/21 19:01 11/28/21 19:08 Ondansetron 4mg/2ml Vial IV 11/28/21 19:02 4 mg ONCE ONE Administration ORDERS Category Date Time Status Chest XR 2 view (NOT portable) [XR chest 2V] Stat Exams 11/28/21 19:01 Taken Troponin I Q3H Lab 11/28/21 21:00 Ordered Troponin I Q3H Lab 11/29/21 00:00 Ordered Urinalysis and Microscopic Stat Lab 11/28/21 19:20 Received - ECG Data Tracing #1 EKG interpreted by Angel Park MD: Rhythm: sinus Rate: 69 Ada: normal Ectopy: none Conduction: normal ST Segment Changes: none T Wave Changes: none Q Waves: none Poor R wave progression - Reevaluation(s) Time: 20:09 Reevaluation #1: Nausea resolved after Zofran - HIEU Score for Non-Stemi Age of Patient: 50-59 years old Heart Rate: 70-89 bpm Systolic Blood Pressure: 120-13
[2021-11-28 17:56] LABS: Basophils # 0.2 K/mm3 (0-0.2); Basophils % 3.1 % (0.1-2.0); Eosinophils # 0.3 K/mm3 (0.0-0.4); Eosinophils % 4.2 % (0.1-12.0); Hematocrit 47.5 % (37.0-47.0); Hemoglobin 15.7 g/dL (12.2-16.2); Lymphocytes % 25.2 % (10-50); Mean Corpuscular Hemoglobin 29.2 pg (27.0-31.2); Mean Corpuscular Volume 88.6 fl (81-99); Monocytes # 0.4 K/mm3 (0.1-1.0); Monocytes % 5.1 % (1.7-9.3); Neutrophils # 4.9 K/mm3 (1.8-7.8); Neutrophils % 62.5 % (37.0-80.0); Platelet Count 279 K/mm3 (142-424); Red Blood Count 5.36 M/mm3 (4.20-5.40); Red Cell Distribution Width 13.9 % (11.5-17.5); White Blood Count 7.9 K/mm3 (4.8-10.8)
[2021-11-28 18:04] LABS: Chloride 106 mmol/L (98-107); Potassium 3.8 mmoL/L (3.5-5.1); Sodium 139 mmol/L (136-145)
[2021-11-28 18:07] LABS: Anion Gap 10.8 mEq/L (5-15); Blood Urea Nitrogen 13 mg/dl (7-17); Carbon Dioxide 26 mmol/L (22.0-30.0); Creatinine Clearance Estimated 118 mL/min (50-200); Estimated Glomerular Filt Rate 58 ml/min (>60); GFR (African American) 70 ML/MIN (>60)
[2021-11-28 18:08] LABS: Calcium 9.5 mg/dl (8.4-10.2); Glucose 114 mg/dl (74-100)
[2021-11-28 18:31] LABS: Troponin I < 0.01 ng/ml (0.00-0.034)
--- NOTE | 2021-11-28 19:01 | XR_ITS ---
PROCEDURE INFORMATION: Exam: XR Chest Exam date and time: 11/28/2021 7:13 PM Age: 51 years old Clinical indication: Chest wall pain; Additional info: Chest pain TECHNIQUE: Imaging protocol: XR of the chest. Views: 2 views. COMPARISON: CR XR CHEST 2V 03/13/2021 8:23 PM FINDINGS: Lungs: See Heart/Mediastinum finding. Pleural spaces: Unremarkable. No pleural effusion. No pneumothorax. Heart/Mediastinum: Findings suggestive of calcified perihilar lymph nodes. Findings unchanged compared with the previous study. Bones/joints: Unremarkable. IMPRESSION: No evidence of acute cardiopulmonary disease.
--- NOTE | 2021-11-28 19:21 | PC.NURSE ---
Pt gone to RAD
--- NOTE | 2021-11-28 19:23 | PC.NURSE ---
Pt back from RAD
[2021-11-28 19:32] LABS: Microscopic, Urine URINE MICROSCOPIC (MICROSCOPIC)
[2021-11-28 20:15] VITALS: BP 124/75; PULSE 61; RESP 18; TEMP 36.9; O2SAT 98
[2021-11-28 20:30] LABS: Appearance,Urine CLEAR (Clear); Bilirubin,Urine Negative (Negative); Blood, Urine Negative (Negative); Color,Urine YELLOW (Yellow); Glucose,Urine (UA) Negative (Negative); Ketones,Urine TRACE (Negative); Leukocyte Esterase,Urine Negative (Negative); Nitrate,Urine Negative (Negative); Protein,Urine Negative (Negative); Specific Gravity, Urine >= 1.030 (1.005-1.030); Urobilinogen,Urine 0.2 EU/dl (0.2)
[2021-11-28 20:35] LABS: Calcium Oxalate Crystals,Urine 1+ /lpf
== END 2021-11-28 20:18 | disposition home or self-care (01) ==
PROVIDERS: Emergency Provider Emergency Medicine
DX: R07.89 Other chest pain (principal); K52.89 Other specified noninfective gastroenteritis and colitis; B34.9 Viral infection, unspecified; R06.02 Shortness of breath; Z88.0 Allergy status to penicillin; F41.9 Anxiety disorder, unspecified; K21.9 Gastro-esophageal reflux disease without esophagitis; E78.5 Hyperlipidemia, unspecified; G43.909 Migraine, unspecified, not intractable, without status migrainosus; E03.9 Hypothyroidism, unspecified
CPT/HCPCS: 71046; 80048; 81001; 84484; 85025; 93005; 96374; 99284; J2405

== ENCOUNTER → 2022-07-07 15:48 | Outpatient (CLI) | payer OTHER, SELFPAY ==
[2022-07-07 16:07] LABS: Chloride 108 mmol/L (98-107); Sodium 140 mmol/L (136-145)
[2022-07-07 16:08] LABS: Potassium 4.1 mmoL/L (3.5-5.1)
[2022-07-07 16:10] LABS: Alanine Aminotransferase 20 U/L (12-78); Albumin Level 4.4 g/dl (3.5-5.0); Albumin/Globulin Ratio 1.4 (1.1-1.8); Alkaline Phosphatase 78 U/L (38-126); Amylase 82 U/L (30-110); Anion Gap 12.1 mEq/L (5-15); Aspartate Amino Transferase 24 U/L (14-36); Bilirubin,Total 0.6 mg/dl (0.2-1.3); Blood Urea Nitrogen 10 mg/dl (7-17); Calcium 9.4 mg/dl (8.4-10.2); Carbon Dioxide 24 mmol/L (22.0-30.0); Estimated Glomerular Filt Rate 52 ml/min (>60); GFR (African American) 63 ML/MIN (>60); Globulin 3.1 g/dL (1.3-3.2); Glucose 132 mg/dl (74-100); Lipase 182 U/L (23-300); Total Protein,Serum 7.5 g/dl (6.3-8.2)
[2022-07-07 16:11] LABS: Basophils # 0.1 K/mm3 (0-0.2); Basophils % 1.1 % (0.1-2.0); Eosinophils # 0.2 K/mm3 (0.0-0.4); Eosinophils % 2.1 % (0.1-12.0); Hematocrit 47.5 % (37.0-47.0); Hemoglobin 15.5 g/dL (12.2-16.2); Lymphocytes # 2.2 K/mm3 (0.7-4.5); Lymphocytes % 23.8 % (10-50); Mean Corpuscular HGB Conc 32.7 g/dL (31.8-35.4); Mean Corpuscular Hemoglobin 29.2 pg (27.0-31.2); Mean Corpuscular Volume 89.3 fl (81-99); Mean Platelet Volume 9.8 fl (7.4-10.4); Monocytes # 0.4 K/mm3 (0.1-1.0); Monocytes % 4.9 % (1.7-9.3); Neutrophils # 6.2 K/mm3 (1.8-7.8); Neutrophils % 68.2 % (37.0-80.0); Platelet Count 283 K/mm3 (142-424); Red Blood Count 5.31 M/mm3 (4.20-5.40); Red Cell Distribution Width 13.8 % (11.5-17.5); White Blood Count 9.1 K/mm3 (4.8-10.8)
== END ==
LOC: LAB 15:49
PROVIDERS: PCP Internal Medicine Adolescent Medicine; Visit Provider Nurse Practitioner Family
DX: R10.13 Epigastric pain (principal); R11.0 Nausea; R53.83 Other fatigue
CPT/HCPCS: 36415; 80053; 82150; 83690; 85025

== ENCOUNTER → 2022-09-07 09:40 | Outpatient (CLI) | payer OTHER, SELFPAY ==
--- NOTE | 2022-09-07 09:47 | NM_ITS ---
FINAL REPORT TECHNIQUE: The patient received a standard meal with 0.49 MCI of TC sulfur colloid. Images of the abdomen were obtained. The T 1/2 was calculated. CLINICAL HISTORY: N/V,WEIGHT LOSS 10:20 am 0.49 sulfur colloid injected into 2 whole eggs a piece of toast with butter 6 oz cup of water FINDINGS: Images of the abdomen are unremarkable. The T 1/2 is 114 minutes. IMPRESSION: T 1/2 of 140 minutes which is abnormal. Reviewed, Interpreted and Dictated by Kyle Franco III, MD Transcribed by Ira Reis Authenticated and [facility]
== END ==
LOC: RAD 09:41
PROVIDERS: PCP Internal Medicine Adolescent Medicine; Visit Provider Nurse Practitioner Family
DX: R11.2 Nausea with vomiting, unspecified (principal); R63.4 Abnormal weight loss
CPT/HCPCS: 78264; A9541

== ENCOUNTER → 2022-12-31 15:15 | Outpatient (CLI) | payer OTHER, SELFPAY ==
--- NOTE | 2022-12-31 15:18 | XR_ITS ---
FINAL REPORT CLINICAL HISTORY: ankle fracture FINDINGS: LEFT ANKLE SERIES Three views of the left ankle were obtained. There is an oblique fracture of the distal fibular metaphysis with mild overlapping of the fracture fragments. There is no significant callus formation identified. The joint spaces are preserved. There is no soft tissue abnormality. IMPRESSION: Oblique fracture of the distal fibular metaphysis with mild overlapping of the fracture fragments. Reviewed, Interpreted and Dictated by Kyle Franco III, MD Transcribed by Josue Carrasco Authenticated and [facility]
--- NOTE | 2022-12-31 16:09 | ECG_ITS ---
APPROVED REPORT Exam: Resting ECG HR:78 bpm ECG Measurements Heart Rate 78 AXES [place] 197 P 34 QRSd 104 QRS 35 QT 370 T 44 QTc 403 Conclusion SINUS RHYTHM LOW QRS VOLTAGE IN PRECORDIAL LEADS Late R wave progression BORDERLINE ECG UNCONFIRMED REPORT Electronically signed by : Antolin Kent MD 12/31/2022 21:11:44
--- NOTE | 2022-12-31 16:30 | XR_ITS ---
PROCEDURE INFORMATION: Exam: XR Chest Exam date and time: 12/31/2022 4:41 PM Age: 52 years old Clinical indication: Screening exam; Pre-operative exam; Other: Pre op ankle SX TECHNIQUE: Imaging protocol: Radiologic exam of the chest. Views: 2 views. COMPARISON: CR XR CHEST 2V 11/28/2021 7:13 PM FINDINGS: Lungs: Unremarkable. No consolidation. Pleural spaces: Unremarkable. No pleural effusion. No pneumothorax. Heart/Mediastinum: Unremarkable. No cardiomegaly. Bones/joints: Unremarkable. IMPRESSION: No acute findings.
[2022-12-31 16:35] LABS: Basophils % 0.5 % (0.1-2.0); Eosinophils # 0.4 K/mm3 (0.0-0.4); Eosinophils % 4.3 % (0.1-12.0); Hematocrit 43.4 % (37.0-47.0); Hemoglobin 14.1 g/dL (12.2-16.2); Lymphocytes % 22.2 % (10-50); Mean Corpuscular HGB Conc 32.5 g/dL (31.8-35.4); Mean Corpuscular Hemoglobin 28.6 pg (27.0-31.2); Mean Corpuscular Volume 87.8 fl (81-99); Mean Platelet Volume 8.6 fl (7.4-10.4); Monocytes # 0.6 K/mm3 (0.1-1.0); Monocytes % 6.4 % (1.7-9.3); Neutrophils # 6.1 K/mm3 (1.8-7.8); Neutrophils % 66.6 % (37.0-80.0); Platelet Count 245 K/mm3 (142-424); Red Blood Count 4.94 M/mm3 (4.20-5.40); Red Cell Distribution Width 14.1 % (11.5-17.5); White Blood Count 9.1 K/mm3 (4.8-10.8)
[2022-12-31 17:04] LABS: Alanine Aminotransferase 36 U/L (12-78); Albumin/Globulin Ratio 1.5 (1.1-1.8); Alkaline Phosphatase 88 U/L (38-126); Anion Gap 12.9 mEq/L (5-15); Aspartate Amino Transferase 39 U/L (14-36); Bilirubin,Total 0.8 mg/dl (0.2-1.3); Blood Urea Nitrogen 12 mg/dl (7-17); Carbon Dioxide 24 mmol/L (22.0-30.0); Chloride 107 mmol/L (98-107); Estimated Glomerular Filt Rate 75 ml/min (>60); GFR (African American) 91 ML/MIN (>60); Globulin 2.6 g/dL (1.3-3.2); Glucose 94 mg/dl (74-100); Potassium 3.9 mmoL/L (3.5-5.1); Sodium 140 mmol/L (136-145); Total Protein,Serum 6.6 g/dl (6.3-8.2)
== END ==
PROVIDERS: PCP Internal Medicine Adolescent Medicine; Visit Provider Orthopaedic Surgery
DX: Z01.818 Encounter for other preprocedural examination (principal); S82.892A Other fracture of left lower leg, initial encounter for closed fracture
CPT/HCPCS: 36415; 71046; 73610; 80053; 85025; 93005

== ENCOUNTER 2023-01-08 06:01 | Day surgery (SDC) | payer OTHER, SELFPAY ==
[2023-01-07 13:00] VITALS: BMI 39.1
[2023-01-08] VITALS (16 sets, daily range): BP systolic 103–164; BP diastolic 31–96; PULSE 70–101; RESP 16–21; TEMP 36.2–43; O2SAT 92–99
--- NOTE | 2023-01-08 06:39 | SUR.PREOP ---
0639-pt on bedpan-50 urine
--- NOTE | 2023-01-08 08:45 | XR_ITS ---
FINAL REPORT CLINICAL HISTORY: LEFT ANKLE IN OR 26 seconds fluoro time FINDINGS: FLUOROSCOPY LESS THAN 1 HOUR HISTORY: Fluoroscopy guided injection. Fluoroscopy guidance was provided for left ankle surgery. 3 spot films were obtained. 26 seconds of fluoroscopy time was used. IMPRESSION: Fluoroscopy as stated above. Reviewed, Interpreted and Dictated by Kyle Franco III, MD Transcribed by Josue Carrasco Authenticated and [facility]
--- NOTE | 2023-01-08 09:21 | EXP.OP.NOTE ---
Date of procedure: 01/08/23 Pre-op Diagnosis:: Left lateral malleolus ankle fracture Post-op Diagnosis:: Same Procedure performed:: Open reduction internal fixation left lateral malleolus Surgeon:: Vic Cordero DO ATHLETICS DIRECTOR:: Other Anesthesia: GETA and regional Estimated blood loss (mL): 10 Clinical Note:: Implants Synthes small frag with one third tubular plate Operative findings:: Displaced lateral malleolus fracture Operative note:: Patient was identified preoperatively. Left ankle marked with yes my initials. Transferred operative suite. Placed upon operating bed. General anesthesia administered airway secured. Left lower extremities then prepped and draped normal sterile fashion. Once prepped and draped final operative timeout performed to identify proper patient procedure and extremity. Everyone involved the case agreed. No count indication beginning. Did receive preoperative antibiotics. Marking pen was used to make plan incision over the lateral malleolus. X-rays were brought in to confirm level of the fracture. Esmarch was used to exsanguinate extremity pneumatic tourniquet was inflated to 300 mmHg. Skin knife was used to incise through skin. Careful dissection was taken down to the level of the fracture. Fracture hematoma seen and evacuated. The edges of the fracture were cleaned. Irrigation performed. Pulmonary reduction and fixation held with a lobster claw. X-ray confirmed anatomical reduction. Then a lag screw was placed anterior to posterior normal AO fashion. Then a one third tubular plate was selected from the Synthes small frag set. Contoured to the bone. And fixated to the bone with a cortical screw superior to the fracture. 2 locking screws were placed distally 2 more cortical screws were placed proximally for good fixation of the plate. X-rays were taken on the AP and lateral view with good reduction of the ankle. Copious irrigation of the wound performed Deep layers closed with 0 Vicryl subcutaneous with 2-0 Vicryl 3-0 nylon the skin for closure. Sterile dressing placed. Well-padded posterior splint placed. Patient waken anesthesia taken recovery in stable condition.. Condition: stable Disposition: PACU Complications:: None apparent
--- NOTE | 2023-01-08 09:27 | EXP.ANES.CKL ---
[facility] Disclaimer: The information contained in this section may have been updated after the patient was seen, as this information can be updated by other users. Medical History Chest pain Gastroesophageal reflux disease Hernia, hiatal HLD (hyperlipidemia) Surgical History History of arthroplasty of right ankle History of bilateral tubal ligation History of cholecystectomy History of hysterectomy History of left oophorectomy Family History Other Family history of diabetes mellitus type II Family history of hyperlipidemia Family history of hypertension Family history of myocardial infarction Prostate cancer Social History Smoking Status: Never smoker alcohol intake: never substance use type: denies use current occupational status: employed Travel in the last 8 weeks: None household members: spouse housing: house lives independently: No marital status: education level: college service: No caffeine: Yes do you feel safe at home: Yes victim of physical abuse: No victim of emotional abuse: No victim of sexual abuse: No would you like helpful sources: No [facility] Anesthesia Checklist Patient Identification Patient Identification: Arm Band and Family Structural Data Admitted From: Home Planned Operative Procedure/s: orif left lateral malleous Consent for Planned Operative Procedure(s) Verified: Yes Verified Documents: Surgical Consent NPO Status Verified Time NPO: 00:00 Additional verifications Patient : No Anesthesia Reactions: No (N/V) Hx Blood Transfusions: No Blood Transfusion Reaction: No Cephalosporin Allergy: No Previous Colonoscopy: Yes Airway Assessment C-Spine Mobility Assessed: Yes TMJ Mobility Assessed: Yes Dentition: Good Dentition Neurological Assessment Level of Consciousness: Awake, Alert, Appropriate and Follows Commands Hx Seizures: Yes Numbness or tingling in extremities: No Anesthesia Plan Anesthesia Risk discussed: Yes ASA Class: II Anesthesia Type: General w/block
[2023-01-08 09:29] LABS: POC Glucose,Bedside 105 (70-110)
--- NOTE | 2023-01-08 09:30 | P.PNANES_ITS ---
[facility] Anesthesia Record Part I Anesthesia Record I Intake, IV Amount: 900 Estimated blood loss (mL): 5 Urine output (mL): 0 Blood Products used (#): none Blood Pressure: 103/41 SaO2: 95 Pulse Rate: 101 Respiratory Rate: 21 Temperature: 99 F Patient is:: Stable
--- NOTE | 2023-01-08 09:36 | PC.NURSE ---
Pt rating L foot pain at 6, able to wiggle toes, p/w/d.
--- NOTE | 2023-01-08 10:00 | SUR.PHASEI ---
Larry Linn WILLOW WORKER notified of pain 12/05 L heel, came to bedside.
--- NOTE | 2023-01-08 10:20 | PC.NURSE ---
Pt C/O chest heaviness. Sat pt up, applied 2L/NC, encourage deep breathing, turned bare hugger heat off. Pt said starting to feel better. Updated Larry Linn CRNA, no new orders.
--- NOTE | 2023-01-08 10:24 | SUR.PHASEI ---
1012 Larry Linn CRNA repeated popliteal nerve block at bedside. Pt tolerated well.
--- NOTE | 2023-01-08 13:50 | P.PNANES_ITS ---
[facility] Disclaimer: The information contained in this section may have been updated after the patient was seen, as this information can be updated by other users. Medical History Chest pain Gastroesophageal reflux disease Hernia, hiatal HLD (hyperlipidemia) Surgical History History of arthroplasty of right ankle History of bilateral tubal ligation History of cholecystectomy History of hysterectomy History of left oophorectomy Family History Other Family history of diabetes mellitus type II Family history of hyperlipidemia Family history of hypertension Family history of myocardial infarction Prostate cancer Social History Smoking Status: Never smoker alcohol intake: never substance use type: denies use current occupational status: employed Travel in the last 8 weeks: None household members: spouse housing: house lives independently: No marital status: education level: college service: No caffeine: Yes do you feel safe at home: Yes victim of physical abuse: No victim of emotional abuse: No victim of sexual abuse: No would you like helpful sources: No [facility] Anesthesia Checklist Additional verifications Anesthesia Reactions: No (N/V) Hx Blood Transfusions: No Blood Transfusion Reaction: No Cephalosporin Allergy: No
--- NOTE | 2023-01-08 14:18 | P.PNANES_ITS ---
[facility] Anesthesia Record Part II Anesthesia Record Part II Discharge Time: 10:30 Destination: surg PACU nurse assessment reviewed?: Yes Patient Condition:: Good Anesthesia Complications:: None Swallowing reflex intact?: Yes Cyanosis?: No Blood Pressure: 144/76 Pulse Rate: 81 Temperature: 97.1 F Mental Status: Alert & Oriented Pain level:: 0 Nausea and/or vomitting:: None Intake, IV Amount: 0 Comments:: Pt c/o pain in heel while in pacu. Popliteal Nerve block performed again resulting in decrease in pain
== END 2023-01-08 11:15 | disposition home or self-care (01) ==
PROVIDERS: PCP Internal Medicine Adolescent Medicine; Visit Provider Orthopaedic Surgery
PROC: (CPT 27792; principal; 2023-01-08 07:30)
DX: S82.62XA Displaced fracture of lateral malleolus of left fibula, initial encounter for closed fracture (principal); Z79.899 Other long term (current) drug therapy; E03.9 Hypothyroidism, unspecified; W01.0XXA Fall on same level from slipping, tripping and stumbling without subsequent striking against object, initial encounter
CPT/HCPCS: 27792; 73600; 76000; 82962; 96374; C1713; J2405

== ENCOUNTER → 2023-01-21 10:05 | Outpatient (CLI) | payer OTHER, SELFPAY ==
--- NOTE | 2023-01-21 10:08 | XR_ITS ---
FINAL REPORT CLINICAL HISTORY: lt ankle fx f/u COMPARISON: 01/08/2023 FINDINGS: LEFT ANKLE Three views demonstrate interval post ORIF of the distal fibula. Fracture line is obscured by hardware. There is no significant displacement. The visualized joint spaces are normally aligned. The soft tissues are unremarkable. IMPRESSION: Post ORIF of the distal fibula, fracture line obscured by hardware. Reviewed, Interpreted and Dictated by Patti Lange MD Transcribed by Ira Reis Authenticated and [facility]
== END ==
PROVIDERS: PCP Internal Medicine Adolescent Medicine; Visit Provider Orthopaedic Surgery
DX: M25.572 Pain in left ankle and joints of left foot (principal); S92.352A Displaced fracture of fifth metatarsal bone, left foot, initial encounter for closed fracture
CPT/HCPCS: 73610

== ENCOUNTER 2023-01-21 11:09 | Outpatient (RCR) | payer OTHER, SELFPAY | END 2023-01-21 12:00 | disposition home or self-care (01) | LOC: PT 11:09 | PROVIDERS: Visit Provider Orthopaedic Surgery | DX: S82.62XA Displaced fracture of lateral malleolus of left fibula, initial encounter for closed fracture (principal) | CPT/HCPCS: 97760 ==

== ENCOUNTER → 2023-02-23 09:29 | Outpatient (CLI) | payer OTHER, SELFPAY ==
--- NOTE | 2023-02-23 09:34 | XR_ITS ---
FINAL REPORT CLINICAL HISTORY: left ankle ORIF december 2022 COMPARISON: 01/21/2023 FINDINGS: Left ankle Three views were obtained. Overlying cast has been removed. Sideplate and screws are seen securing the distal fibula. There is soft tissue swelling about the ankle. IMPRESSION: Post ORIF as above. Reviewed, Interpreted and Dictated by Desmond Drummond MD Transcribed by Meme Clark Authenticated and [facility]
== END ==
PROVIDERS: PCP Internal Medicine Adolescent Medicine; Visit Provider Orthopaedic Surgery
DX: S92.352A Displaced fracture of fifth metatarsal bone, left foot, initial encounter for closed fracture (principal)
CPT/HCPCS: 73610

== ENCOUNTER 2023-04-02 16:00 | Outpatient (RCR) | payer OTHER, SELFPAY ==
--- NOTE | 2023-03-10 11:41 | HMH.PTOPEV ---
PT Outpatient Evaluation Rehab PT Outpatient Evaluation Start: 03/10/23 10:48 Freq: Status: Active Protocol: Document 03/10/23 11:10 HALLEY (Rec: 03/10/23 11:41 HALLEY [id number]) E-signed By James Means, PT Outpatient Therapy Subjective History Subjective History Pt presents s/p left lateral malleolus fx and ORIF sx. Pt reports injurt occurred on 12/29, ith sx. on 01/08/23. Pt reports well healed incision, however, lingering post-op stiffness, pain, swelling, and weakness have limited functional return to walking/ standing. Pt also reports chronic plantar fasciitis in left foot. New diagnosis of cancer in past 12 No months? Chief Complaint Pain,Stiff,Swelling,Weakness Symptom Type Ache,Dull Symptoms Relieved By Rest/Positioning Symptoms Aggravated By Standing,Physical Activity, Walking Prior Functional Limitations None Current Functional Limitations Housework,Standing,Walking, Stairs Symptom Description Constant but Variable Level of pain today (0-10) 7 Pain scale - at its best (0-10) 7 Pain scale - at its worst (0-10) 9 Ankle/Foot Eval Gait Observation General Gait Pattern Observation Antalgic Gait,Wide Based Gait Palpation Tenderness left Ankle/Foot Palpation Findings Tenderness Ankle/Foot Palpation Overall Comment ant tib/anterior jt capsule 3/ 4, plantar fascia insertion @ calcaneus 2-3/4 ROM Ankle/Foot Dorsiflexion w/Knee Extended 0-2 Active Range Motion (degrees) Ankle/Foot Dorsiflexion w/Knee Extended 0-8 Passive Range (degrees) Ankle/Foot Plantar Flexion Active Range 0-30 of Motion (degrees) Ankle/Foot Plantar Flexion Passive Range 0-35 of Motion (degrees) Ankle/Foot Eversion Active Range of 0-10 Motion (degrees) Ankle/Foot Inversion Active Range of 0-40 Motion (degrees) MMT Ankle Dorsiflexion Strength Grade 3+ Fair+ Ankle Plantarflexion Strength Grade 4- Good- Foot Eversion Strength Grade 4- Good- Foot Inversion Strength Grade 4 Good Lower Extremity Functional Index Activities Today, do you or would you have any difficulty at all with: a.Any of your usual work, housework or Quite a bit of difficulty school activities b. Your usual hobbies, recreational or Quite a bit of difficulty sporting activities c. Getting into or out of
== END 2023-04-02 16:05 | disposition home or self-care (01) ==
LOC: PT 16:00
PROVIDERS: PCP Internal Medicine Adolescent Medicine; Visit Provider Orthopaedic Surgery
DX: S82.62XA Displaced fracture of lateral malleolus of left fibula, initial encounter for closed fracture (principal); S92.352A Displaced fracture of fifth metatarsal bone, left foot, initial encounter for closed fracture
CPT/HCPCS: 97010; 97014; 97110; 97140; 97163; 97530; G0283

== ENCOUNTER → 2023-04-20 10:40 | Outpatient (CLI) | payer OTHER, SELFPAY ==
[2023-04-20 12:44] LABS: Vitamin B12 254 pg/mL (239-931)
== END ==
PROVIDERS: PCP Internal Medicine Adolescent Medicine; Visit Provider Nurse Practitioner Family
DX: R29.2 Abnormal reflex (principal); Z86.2 Personal history of diseases of the blood and blood-forming organs and certain disorders involving the immune mechanism
CPT/HCPCS: 36415; 82607

== ENCOUNTER → 2023-04-26 15:10 | Outpatient (CLI) | payer OTHER, SELFPAY ==
[2023-04-28 11:04] LABS: Homocyst(e)ine 9.4 umol/L (0.0-14.5)
[2023-05-02 12:23] LABS: Methylmalonic Acid 193 nmol/L (0-378)
== END ==
PROVIDERS: PCP Internal Medicine Adolescent Medicine; Visit Provider Nurse Practitioner Family
DX: Z86.2 Personal history of diseases of the blood and blood-forming organs and certain disorders involving the immune mechanism (principal)
CPT/HCPCS: 36415; 83090; 83921

== ENCOUNTER 2023-05-08 19:33 | Emergency (ER) | payer OTHER, SELFPAY ==
[2023-05-08 19:42] VITALS: BP 135/68; PULSE 77; RESP 18; TEMP 36.8; O2SAT 100; BMI 40.3
--- NOTE | 2023-05-08 20:00 | XR_ITS ---
PROCEDURE INFORMATION: Exam: XR Left Knee Exam date and time: 05/08/2023 7:59 PM Age: 52 years old Clinical indication: Pain; Knee; Left; Additional info: Pain in left knee TECHNIQUE: Imaging protocol: Radiologic exam of the left knee. Views: 3 views. COMPARISON: CR XR ANKLE LT MIN 3V 02/23/2023 9:39 AM FINDINGS: Bones/joints: Normal. Soft tissues: Normal. IMPRESSION: No acute findings.
--- NOTE | 2023-05-08 21:05 | HMH.EDGENADL ---
Discharge Plan Disposition Patient Disposition: Home, Self-Care Condition: Good Prescriptions Prescriptions: New naproxen 500 mg tablet 500 mg PO BID Qty: 20 0RF No Action celecoxib [Celebrex] 200 mg capsule 200 mg PO BID Qty: 60 2RF levothyroxine 88 mcg capsule 88 mcg PO DAILY topiramate [Topamax] 50 mg tablet 75 mg PO QHS Ingrezza 80 mg capsule 80 mg PO DAILY Qty: 30 2RF Rx Instructions: 1st month titration provided through samples ondansetron 4 MG tablet,disintegrating 4 mg PO TIDP PRN (Reason: Nausea And Vomiting) Qty: 10 0RF Trintellix 5 mg Tablet 5 mg PO DAILY rabeprazole 20 MG tablet,delayed release (DR/EC) 20 mg PO DAILY Referrals Follow up/Referrals: Vic Cordero DO [Staff Physician] - See instructions Antolin Kent MD [Primary Care Provider] - See instructions Activity Restrictions/Add. Instructions Additional Instructions/Restrictions: You were evaluated in the emergency department today. 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 You may also take Tylenol in addition to this. Rest, ice, and elevate your knee is much as possible. Follow-up outpatient with orthopedics for further evaluation and management. Return to the emergency department for new or worsening symptoms. Clinical Impressions Clinical Impression: Knee pain, left Qualifiers: Chronicity: acute Qualified Code(s): M25.562 - Pain in left knee Stand Alone Forms Stand Alone Forms: Work/School Release Instructions Patient Instructions: DI for Knee Pain Discharge ED Provider: Margareth Huang General Adult HPI General Chief complaint: Extremity Injury, Lower Stated complaint: Left knee pain Time Seen by Provider: 05/08/23 19:55 Mode of Arrival: Ambulatory Source of Information: Patient Limitations: No Limitations Description of Symptoms (Recalled from ER Triage Doc. by RN): Patient came into work tonight and felt her left knee pop and started having pain worse with weight bearing. She broke her left ankle December 29 2022. History of Present Illness HPI narrative: This patient is a 52-year-old female presenting to the emergency department for evaluation with concern for left knee pain. She reports that while she was sitting to get report at work this evening, she felt a pop in her left knee and felt severe pain in her entire left knee joint. She describes it as throbbing. She states that since then, it has come and gone. Nothing is to bring it on or make it worse. She is still able to bear weight, though her knee feels slightly unstable. No prior history of knee issues. No other concerns noted at this time. Related Data Home Medications Medication Instructions Recorded Confirmed levothyroxine 88 mcg capsule 88 mcg PO DAILY THYROID 09/01/17 05/08/23 topiramate 50 mg tablet (Topamax) 75 mg PO QHS migraines 07/08/20 05/08/23 rabeprazole 20 mg tablet,delayed 20 mg PO DAILY GERD 11/18/20 05/08/23 release vortioxetine 5 mg tablet 5 mg PO DAILY Anxiety 01/07/23 05/08/23 (Trintellix) Previous Rx's Medication Instructions Recorded ondansetron 4 mg disintegrating 4 mg PO TIDP PRN Nausea And 11/28/21 tablet Vomiting #10 tabs celecoxib 200 mg capsule (Celebrex) 200 mg PO BID #60 caps 03/24/23 valbenazine 80 mg capsule 80 mg PO DAILY tardive dyskinesia 04/20/23 (Ingrezza) #30 caps naproxen 500 mg tablet 500 mg PO BID #20 tabs 05/08/23 Allergies Allergy/AdvReac Type Severity Reaction Status Date / Time Penicillins Allergy Verified 04/20/23 11:06 [facility] Disclaimer: The information contained in this section may have been updated after the patient was seen, as this information can be updated by other users. Medical History Chest pain Gastroesophageal reflux disease Hernia, hiatal HLD (hyperlipidemia) Surgical History Histor
[2023-05-08 21:13] VITALS: BP 126/77; PULSE 73; RESP 18; TEMP 37.1; O2SAT 96
== END 2023-05-08 21:14 | disposition home or self-care (01) ==
PROVIDERS: Emergency Provider Emergency Medicine; PCP Internal Medicine Adolescent Medicine
DX: M25.562 Pain in left knee (principal); E78.5 Hyperlipidemia, unspecified
CPT/HCPCS: 73562; 96372; 99284

== ENCOUNTER 2023-05-23 14:36 | Emergency (ER) | payer OTHER, SELFPAY ==
[2023-05-23 15:20] VITALS: BP 134/87; PULSE 67; RESP 18; TEMP 36.9; O2SAT 99; BMI 41.6
[2023-05-23 15:46] VITALS: BP 134/87; PULSE 67; RESP 18; TEMP 36.9; O2SAT 99
--- NOTE | 2023-05-23 15:47 | EXP.UTC ---
Discharge Plan Disposition Patient Disposition: Home, Self-Care Condition: Good Prescriptions Prescriptions: New hydroxyzine HCl 25 mg tablet 25 mg PO TID PRN (Reason: itching) Qty: 20 0RF No Action celecoxib [Celebrex] 200 mg capsule 200 mg PO BID Qty: 60 2RF levothyroxine 88 mcg capsule 88 mcg PO DAILY ondansetron 4 MG tablet,disintegrating 4 mg PO TIDP PRN (Reason: Nausea And Vomiting) Qty: 10 0RF Trintellix 5 mg Tablet 5 mg PO DAILY rabeprazole 20 MG tablet,delayed release (DR/EC) 20 mg PO DAILY Referrals Follow up/Referrals: Suly Nguyen MD [Referring] - See instructions (Call office for appointment) Antolin Kent MD [Primary Care Provider] - See instructions Activity Restrictions/Add. Instructions Additional Instructions/Restrictions: Make sure to keep skin moisturized with lotion Look around and make sure that nothing has changed look at everything your medications, soap etc Follow up with your Family Doctor if symptoms persist or worsen Follow up with Dermatology Take Hydroxyzine as prescribed for itching Clinical Impressions Clinical Impression: Itching Instructions Patient Instructions: DI for Itching, Hydroxyzine Discharge ED Provider: Merlyn Dixon [facility] General Stated complaint: itching Mode of Arrival: Ambulatory Source of Information: Patient Limitations: No Limitations Time Seen by Provider: 05/23/23 15:47 Description of Symptoms (Recalled from Triage Doc. by RN): PATIENT C/O SEVERE ITCHING ALL OVER SINCE WEDNESDAY. NO RASH NOTED HEENT Symptoms (Recalled from RN notes): No Resp Symptoms (Recalled from RN notes): No Skin Symptoms (Recalled from RN notes): Yes MS Symptoms (Recalled from RN notes): No Functional Status (Recalled from RN notes): WNL History of Present Illness Provider Complaint: Patient states that she started with itching on Wednesday States that she hasnt had any rash or anything and not changed anything at home states that she has tried keeping her skin covered with lotion and everything and has not worked States that today she was still having itching so she came in to get it looked at Related Data Home Medications Medication Instructions Recorded Confirmed levothyroxine 88 mcg capsule 88 mcg PO DAILY THYROID 09/01/17 05/23/23 rabeprazole 20 mg tablet,delayed 20 mg PO DAILY GERD 11/18/20 05/23/23 release vortioxetine 5 mg tablet 5 mg PO DAILY Anxiety 01/07/23 05/23/23 (Trintellix) Previous Rx's Medication Instructions Recorded ondansetron 4 mg disintegrating 4 mg PO TIDP PRN Nausea And 11/28/21 tablet Vomiting #10 tabs celecoxib 200 mg capsule (Celebrex) 200 mg PO BID #60 caps 03/24/23 hydroxyzine HCl 25 mg tablet 25 mg PO TID PRN itching #20 tabs 05/23/23 Allergies Allergy/AdvReac Type Severity Reaction Status Date / Time Penicillins Allergy Verified 04/20/23 11:06 Worker's Comp Is this a Worker's Comp case?: No [facility] Disclaimer: The information contained in this section may have been updated after the patient was seen, as this information can be updated by other users. Medical History Chest pain Gastroesophageal reflux disease Hernia, hiatal HLD (hyperlipidemia) Surgical History History of arthroplasty of right ankle History of bilateral tubal ligation History of cholecystectomy History of hysterectomy History of left oophorectomy Family History Other Family history of diabetes mellitus type II Family history of hyperlipidemia Family history of hypertension Family history of myocardial infarction Prostate cancer Social History Smoking Status: Never smoker alcohol intake: never substance use type: denies use current occupational status: employed Travel in
== END 2023-05-23 16:22 | disposition home or self-care (01) ==
PROVIDERS: Emergency Provider Nurse Practitioner; PCP Internal Medicine Adolescent Medicine
DX: L29.9 Pruritus, unspecified (principal); K21.9 Gastro-esophageal reflux disease without esophagitis; E78.5 Hyperlipidemia, unspecified
CPT/HCPCS: 96372; 99212; 99214; G0463

== ENCOUNTER → 2023-06-15 10:29 | Outpatient (CLI) | payer OTHER, SELFPAY ==
--- NOTE | 2023-06-15 10:43 | XR_ITS ---
FINAL REPORT CLINICAL HISTORY: left ankle orif COMPARISON: 02/23/2022 FINDINGS: LEFT ANKLE Three views demonstrate no acute fracture or dislocation. A plate and screws are present in this patient with a healing distal fibular fracture. The fracture fragments remained well aligned and callus formation is present. 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 The visualized joint spaces are normally aligned. A small plantar calcaneal spur is present. IMPRESSION: No acute bony abnormality. Healing fracture distal fibula as described, with an increase in the interosseous heterotopic bone when compared with the prior films of January 2023. Reviewed, Interpreted and Dictated by Desmond Drummond MD Transcribed by Amanda Dhaliwal Authenticated and [facility]
== END ==
PROVIDERS: PCP Internal Medicine Adolescent Medicine; Visit Provider Orthopaedic Surgery
DX: S92.352A Displaced fracture of fifth metatarsal bone, left foot, initial encounter for closed fracture (principal)
CPT/HCPCS: 73610